=== PATIENT | male | born 1945 | race Two or more races ===

== ENCOUNTER 2020-04-26 12:07 | Outpatient (CLI) | payer OTHER | END 2020-04-26 12:27 | disposition home or self-care (01) | LOC: SONOGRAMA 12:07 | PROVIDERS: ATTEND Pathology Anatomic Pathology | DX: C73 Malignant neoplasm of thyroid gland (principal) ==

== ENCOUNTER 2020-05-11 13:02 | Outpatient (CLI) | payer OTHER | END 2020-05-11 13:30 | disposition home or self-care (01) | LOC: OFIC 805 13:02 | PROVIDERS: ATTEND Otolaryngology | DX: C73 Malignant neoplasm of thyroid gland (principal); C76.0 Malignant neoplasm of head, face and neck ==

== ENCOUNTER 2020-06-04 11:00 | Inpatient (IN) | payer OTHER ==
[~2020-06-04] VITALS: Ht 167.6 cm; Wt 68.0 kg
[2020-06-04] MEDS ORDERED: COZAAR100 MG PO (11:20)
[2020-06-04] MEDS ORDERED: GABAPENTIN300 M2 PO (11:20)
[2020-06-04] MEDS ORDERED: ALZ SR CAPLET1 EACH PO (11:20)
[2020-06-04] MEDS ORDERED: PLAVIX75 MG PO (11:20)
[2020-06-04] MEDS ORDERED: METFORMIN HCL500 M3 PO (11:21)
[2020-06-04] MEDS ORDERED: LIPITOR20 MG PO (11:21)
[2020-06-04] MEDS ORDERED: TOPROL XL25 M1 PO (11:21)
[2020-06-04] MEDS ORDERED: RISPERDAL0.5 MG PO (11:22)
[2020-06-04] MEDS ORDERED: CITALOPRAM HBR40 MG PO (11:23)
[2020-06-04] MEDS ORDERED: MAXIMUM D3325 MCG PO (11:23)
[2020-06-07] MEDS ORDERED: FINASTERIDE5 MG (13:24)
== END 2020-06-08 14:27 | disposition home or self-care (01) | DRG 626 ==
LOC: O/R 06-06 11:00 → SURG 06-07 06:30 → O/R 06-07 06:30 → SURG 06-07 18:19
PROVIDERS: ADMIT Otolaryngology; ATTEND Surgery
PROC: 0GTH0ZZ Resection of Right Thyroid Gland Lobe, Open Approach (ICD-10-PCS; 2020-06-07)
PROC: 07T10ZZ Resection of Right Neck Lymphatic, Open Approach (ICD-10-PCS; 2020-06-07)
PROC: 0GTG0ZZ Resection of Left Thyroid Gland Lobe, Open Approach (ICD-10-PCS; principal; 2020-06-07 08:30)
DX: C73 Malignant neoplasm of thyroid gland (principal); C77.0 Secondary and unspecified malignant neoplasm of lymph nodes of head, face and neck

== ENCOUNTER 2020-07-15 12:29 | Outpatient (CLI) | payer OTHER ==
[~2020-07-15 12:29] MED LIST: ALZ SR CAPLET1 EACH PO; CITALOPRAM HBR40 MG PO; COZAAR100 MG PO; FINASTERIDE5 MG; GABAPENTIN300 M2 PO; LIPITOR20 MG PO; MAXIMUM D3325 MCG PO; METFORMIN HCL500 M3 PO; PLAVIX75 MG PO; RISPERDAL0.5 MG PO; TOPROL XL25 M1 PO
== END 2020-07-15 15:55 | disposition home or self-care (01) ==
LOC: OFIC 805 12:29
PROVIDERS: ATTEND Otolaryngology
DX: C73 Malignant neoplasm of thyroid gland (principal); G83.89 Other specified paralytic syndromes